=== PATIENT | female | born 1995 | race Caucasian/White ===

== ENCOUNTER 2017-05-15 13:50 | Emergency (ER) | payer OTHER ==
--- NOTE | 2017-05-15 14:23 | ED.PDOC ---
History of Present Illness - General Chief Complaint: General Stated Complaint: not feeling well, dizzy Time Seen by Provider: 05/15/17 14:23 Source: patient Exam Limitations: no limitations - History of Present Illness Initial Comments: Krystal Soares 21 y/o female 22 weeks ega primigravida stated she was doing house work then felt dizzy went to rest in bed then felt numbness and tingling on left upper extremities and left side of face today.Stated symptoms resolved. Timing/Duration: 1-3 hours Severity: moderate Improving Factors: rest Worsening Factors: nothing Associated Symptoms: denies symptoms Allergies/Adverse Reactions: Allergies NO KNOWN ALLERGY Allergy (Verified 05/15/17 14:17) Review of Systems - Review of Systems Constitutional: States: other - dizziness EENTM: States: no symptoms reported Respiratory: States: no symptoms reported Cardiology: States: no symptoms reported Gastrointestinal/Abdominal: States: no symptoms reported Musculoskeletal: States: no symptoms reported Skin: States: no symptoms reported Neurological: States: numbness, paresthesia Endocrine: States: no symptoms reported Hematologic/Lymphatic: States: no symptoms reported Past Medical History (General) - Patient Medical History Hx Seizures: No Hx Stroke: No Hx Dementia: No Hx Asthma: No Hx of COPD: No Hx Cardiac Disorders: No Hx Congestive Heart Failure: No Hx Pacemaker: No Hx Hypertension: No Hx Thyroid Disease: No Hx Diabetes: No Hx Gastroesophageal Reflux: No Hx Renal Disease: No Hx Cancer: No Hx Hepatitis C: No Surgical History: no surgical history - Vaccination History Hx Tetanus, Diphtheria Vaccination: Yes Hx Influenza Vaccination: Yes Hx Pneumococcal Vaccination: Yes Immunizations Up to Date: Yes - Social History Hx Tobacco Use: No Hx Chewing Tobacco Use: No Hx Alcohol Use: No Hx Substance Use: No Hx Substance Use Treatment: No Hx Depression: No Feels Threatened In Home Enviroment: No Feels Threatened In a Relationship: No Hx Physical Abuse: No Hx Emotional Abuse: No Hx Suspected Abuse: No - Activities of Daily Living Hospice Agency (if applicable):: None - Female History Patient is a Female of Child Bearing Age (10 -59 yrs old): No Patient : Yes Hx Gestational Age: 22 - Triage Comment ED Triage Comment: 22 weeks Family Medical History - Family History Mother Family History: No Known Living Status: Still Living Hx Family Asthma: No Hx Family Hypertension: Yes - dad Physical Exam - Physical Exam General Appearance: Alert, Comfortable, No apparent distress Eye Exam: bilateral normal Ears, Nose, Throat: hearing grossly normal, normal ENT inspection, normal pharynx Neck: non-tender, full range of motion, supple Respiratory: chest non-tender, lungs clear, normal breath sounds Cardiovascular/Chest: normal peripheral pulses, regular rate, rhythm, no murmur Peripheral Pulses: radial,right: 1+, radial,left: 1+ Gastrointestinal/Abdominal: normal bowel sounds, non tender, soft, other - gravid uterus heart tone-157/min Back Exam: normal inspection, no CVA tenderness, no vertebral tenderness Extremity: normal range of motion, non-tender, normal inspection, no pedal edema , no calf tenderness Neurologic: no motor/sensory deficits, alert, normal mood/affect, oriented x 3, other - speech fluent Skin Exam: normal color, warm/dry Lymphatic: no adenopathy Progress - Progress Progress: 05/15/17 16:30 Vital Signs BP-120/78 sp02-95% heartrate -74 - Results/Orders Results/Orders: Laboratory Results - last 24 hr 05/15/17 05/15/17 05/15/17 15:00 15:00 15:00 WBC 16.6 H RBC 4.12 L Hgb 12.4 Hct 36.1 MCV 87.5 MCH 30.2 MCHC 34.5 RDW 12.6 Plt Count 198 MPV 8.9 Absolute Neuts (auto) 12.10 H Absolute Lymphs (auto) 3.30 Absolute Monos (auto) 1.00 H Absolute Eos (auto) 0.20 Absolute Basos (auto) 0.00 Neutrophils % 73.1 Lymphocytes % 20.0 Monocytes % 5.9 Eosinophils % 0.9 L Basophils % 0.1 Sodium 137 Potassium 3.7 Chloride 104 Carbon Dioxide 24 Anion Gap 12.7 BUN 7 Creatinine 0.47 L BUN/Creatinine Ratio 14.9 Random Glucose 94 Serum Osmolality Not Reportable Calcium 9.6 Total Bilirubin 0.5 AST 13 ALT 11 Alkaline Phosphatase 80 Serum Total Protein 6.8 Albumin 3.3 Globulin 3.5 Albumin/Globulin Ratio 0.9 L Urine Color Yellow Urine Appearance Clear Urine pH 7.0 Ur Specific [place] 1.015 Urine Protein Negative Urine Glucose (UA) Negative Urine Ketones Negative Urine Blood Negative Urine Nitrite Negative Urine Bilirubin Negative Urine Urobilinogen 0.2 Ur Leukocyte Esterase Negative Urine RBC 0 Urine WBC 0 Ur Epithelial Cells 0 Urine Bacteria 0 Discuss test results with the patient and explaine elevated white blood count which can occur in ,no focus of infection,UA-normal Departure - Departure Clinical Impression: Dizziness, 22 weeks gestation of Time of Disposition: 16:44 Disposition: Discharge to Home or Self Care Condition: Good Departure Forms: ED Discharge - Pt. Copy, Patient Portal Self Enrollment Instructions: Managing Symptoms of , and Housework: Could You Be Putting Your Baby at Risk? Additional Instructions: Follow up with your Manager Body 05/16/2017 as needed call for appointment Continue with vitamins;Return to emergency room as needed
[2017-05-15] MEDS ORDERED: SODIUM CHLORIDE 0.9% 1000ML 1,000 ML IVS ONE (14:37)
[2017-05-15 17:02] VITALS: BP 115/77; O2SAT 96
== END 2017-05-15 17:02 | disposition home or self-care (01) ==
LOC: ER 13:50
DX: O26.892 Other specified pregnancy related conditions, second trimester (principal); R42 Dizziness and giddiness; Z3A.22 22 weeks gestation of pregnancy
CPT/HCPCS: 36415; 80053; 81001; 85025; J7030